=== PATIENT | female | born 1970 | race Caucasian/White ===

== ENCOUNTER 2016-07-06 13:47 | Outpatient (CLI) | payer OTHER ==
--- NOTE | 2016-07-06 16:53 | Diagnostic Imaging Report ---
[facility] [address] [facility].[address] [id number] Report Submission Date: Jul 06, 2016 3:26:18 PM DATA CONTROL CLERK SUPERVISOR Patient Study Name: TOAN GRAJEDA Date: Jul 06, 2016 1:55:13 PM DATA CONTROL CLERK SUPERVISOR Modality Type: CR Gender: F Description: UPPER EXTREMITY : 68 Institution: [facility] Physician: UNKNOWN Right hand - three views Clinical history: Pain and swelling for 2 days. Findings: Examination of the right hand in palmar, lateral and oblique views demonstrates fractures in the bases of the fourth and fifth proximal phalanges with 1.5 mm displacement of the fracture fragment in the base of the fifth proximal phalanx. The fourth proximal phalangeal fracture is displaced by less than 1 mm. Bony structures otherwise appear intact. Impression: 1. Fractures in the bases of the fourth and fifth proximal phalanges. Electronically signed on Jul 06, 2016 3:26:18 PM DATA CONTROL CLERK SUPERVISOR by: Justin SHEPPARD
== END 2016-07-06 13:50 ==
LOC: RAD 13:47
PROVIDERS: ATTEND Orthopaedic Surgery
DX: S62.614A Displaced fracture of proximal phalanx of right ring finger, initial encounter for closed fracture (principal); S62.616A Displaced fracture of proximal phalanx of right little finger, initial encounter for closed fracture; X58.XXXA Exposure to other specified factors, initial encounter; Y93.9 Activity, unspecified; Y99.9 Unspecified external cause status
CPT/HCPCS: 73130

== ENCOUNTER 2018-02-22 16:11 | Outpatient (CLI) | payer OTHER ==
[2018-02-22 18:04] LABS: eGFR (Non-African) > 60
[2018-02-23 00:41] LABS: BASO % 0.4 % (0.0-1.5); EOS % 3.4 % (0.0-6.8); LYMPH ABS # 2.14 thou/uL (0.60-4.00); MCH. 32.2 pg (28.0-34.0); MCV 95.9 fL (80.0-100.0); MONOCYTE % 4.6 % (0.0-11.0); MONOCYTE ABS # 0.28 thou/uL (0.00-0.90); PLATELET COUNT 348 thou/uL (130-400)
== END 2018-02-22 16:12 ==
LOC: LAB 16:11
PROVIDERS: ATTEND Nurse Practitioner Family
DX: E78.5 Hyperlipidemia, unspecified (principal); E03.9 Hypothyroidism, unspecified
CPT/HCPCS: 36415; 80053; 82465; 85025